=== PATIENT | female | born 1995 | race Caucasian/White ===

== ENCOUNTER 2017-11-09 04:36 | Emergency (ER) | payer MEDICAID ==
[~2017-11-09] VITALS: Ht 152.4 cm; Wt 74.8 kg
[2017-11-09 04:42] VITALS: Ht 152.4 cm; Wt 74.8 kg
[2017-11-09 06:01] LABS: AMPHETAMINE QUAL UR NONE DETECTED (See below)
[2017-11-09 06:14] LABS: CALCIUM 9.2 mg/dL (8.5-10.1); CHLORIDE SERUM 103 mmol/L (98-107); POTASSIUM SERUM 3.1 mmol/L (3.5-5.1); SODIUM SERUM 139 mmol/L (136-145)
[2017-11-09 06:26] LABS: CARBON DIOXIDE 25.9 mmol/L (21-32); CREATININE SERUM 0.7 mg/dL (0.6-1.0); GFR1 > 60 mL/min; GLUCOSE SERUM 97 mg/dL (74-106)
[2017-11-09 07:07] VITALS: BP 112/65
== END 2017-11-09 07:07 | disposition home or self-care (01) ==
LOC: ED 04:36
PROVIDERS: Emergency Medicine
DX: R00.2 Palpitations (principal); R42 Dizziness and giddiness; R07.89 Other chest pain; R20.2 Paresthesia of skin; K21.9 Gastro-esophageal reflux disease without esophagitis
CPT/HCPCS: Q0092

== ENCOUNTER 2018-11-17 19:43 | Emergency (ER) | payer SELFPAY ==
[~2018-11-17] VITALS: Ht 152.4 cm; Wt 75.3 kg
[2018-11-17 19:48] VITALS: Ht 152.4 cm; Wt 75.3 kg
[2018-11-17 21:00] VITALS: BP 110/63
== END 2018-11-17 21:00 | disposition home or self-care (01) ==
LOC: ED 19:43
DX: J32.9 Chronic sinusitis, unspecified (principal); K21.9 Gastro-esophageal reflux disease without esophagitis
CPT/HCPCS: Q0092